=== PATIENT | male | born 1995 | race African-American/Black ===

== ENCOUNTER 2018-05-01 11:25 | Emergency (ER) | payer SELFPAY ==
[~2018-05-01] VITALS: Ht 182.9 cm; Wt 77.2 kg
[2018-05-01 11:34] VITALS: BP 124/82
[2018-05-01] MEDS ORDERED: PROPARACAINE OPHTH 0.5%, 15ML ONE (11:46)
[2018-05-01] MEDS ORDERED: FLUORESCEIN/BENOXINATE 5 ML DROPS OP ONE ×2 (12:30)
--- NOTE | 2018-05-01 12:38 | NUR ---
Patient/Caregiver given discharge instructions and they have confirmed that they understand the instructions. Patient ambulatory with steady gait. PT LEFT WITH ALL PERSONAL BELONGINGS.
[2018-05-01] MEDS ORDERED: FLUORESCEIN OPHTHALMIC 1 MG STRIP EACHEYE ONE (13:00)
[2018-05-01] MEDS ORDERED: PROPARACAINE OPHTH 0.5%, 15ML EACHEYE ONE (13:00)
[2018-05-01] MEDS ORDERED: ERYTHROMYCIN OPHTH 0.5%, 1GM LEFTEYE SCH (16:00)
== END 2018-05-01 12:40 | disposition home or self-care (01) ==
LOC: ED 12:15
DX: S05.92XA Unspecified injury of left eye and orbit, initial encounter (principal); X58.XXXA Exposure to other specified factors, initial encounter; Y93.89 Activity, other specified; Y92.89 Other specified places as the place of occurrence of the external cause; Y99.8 Other external cause status
CPT/HCPCS: 99282